=== PATIENT | male | born 1940 | race Asian ===

== ENCOUNTER 2018-08-11 20:41 | Emergency (ER) | payer OTHER, MEDICAID ==
[~2018-08-11] VITALS: Ht 152.4 cm; Wt 74.8 kg
[~2018-08-11 20:41] MED LIST: ASPI81TA3 PO; ATOR20TA40 PO; BACL10TA4 PO; FURO-570 PO; LINA290C PO; OMEP20EC9 PO; POTA10TE30 PO; TAMS0.4C96 PO
[2018-08-11 21:05] VITALS: BP 155/90
--- NOTE | 2018-08-11 21:08 | NUR ---
TO LOBBY A/W BED, AMBULATORY
--- NOTE | 2018-08-11 21:56 | NUR ---
PT AMBULATED TO BED 11.
--- NOTE | 2018-08-11 21:56 | NUR ---
PATIENT PRESENTS TO ED WITH C/O ABD PAIN X 1 WEEK . PT DENIES N/V/D; ABD IS ROUND NONTENDER, FIRM. SKIN IS PINK/WARM/DRY; AAOX4 WITH EVEN AND STEADY GAIT; LUNGS CLEAR BL; HR EVEN AND REGULAR; PT DENIES ANY FEVER, CP, SOB, OR COUGH AT THIS TIME; PATIENT STATES PAIN OF 8/10 AT THIS TIME; VSS; PATIENT POSITIONED FOR COMFORT; HOB ELEVATED; BEDRAILS UP X2; BED DOWN. ER MD MADE AWARE OF PT STATUS.
[2018-08-11 21:57] LABS: BASOPHILS % (AUTO) 0.9 % (0.0-2.0); EOSINOPHILS # (AUTO) 0.2 K/uL (0-0.4); EOSINOPHILS % (AUTO) 2.9 % (0.0-4.0); HEMATOCRIT 43.8 % (36-52); HEMOGLOBIN 14.2 g/dL (12.0-18.0); LYMPHOCYTES # (AUTO) 1.4 K/uL (2.0-11.5); LYMPHOCYTES % (AUTO) 26.4 % (20.5-51.1); MEAN CORPUSCULAR HEMOGLOBIN 29 pg (27-31); MEAN CORPUSCULAR HGB CONC 33 g/dL (33-37); MEAN CORPUSCULAR VOLUME 88.8 fL (80-94); MONOCYTES # (AUTO) 0.5 K/uL (0.8-1.0); MONOCYTES % (AUTO) 9.9 % (1.7-9.3); NEUTROPHILS # (AUTO) 3.2 K/uL (1.8-7.7); NEUTROPHILS % (AUTO) 59.9 % (42.2-75.2); PLATELET COUNT (AUTO) 179 K/uL (140-450); RED BLOOD CELL COUNT(AUTO) 4.93 MIL/uL (4.20-6.10); RED CELL DISTRIBUTION WIDTH 13.9 % (11.6-13.7); WHITE BLOOD COUNT (AUTO) 5.4 K/uL (4.8-10.8)
[2018-08-11 22:17] LABS: APPEARANCE,URINE CLEAR (CLEAR); BILIRUBIN,URINE NEGATIVE (NEGATIVE); BLOOD, URINE TRACE-I (NEGATIVE); COLOR,URINE YELLOW (YELLOW); LEUKOCYTE ESTERASE ,URINE NEGATIVE (NEGATIVE); NITRITE, URINE NEGATIVE (NEGATIVE); UGLUCOSE NEGATIVE (NEGATIVE)
[2018-08-11 22:20] LABS: ALBUMIN 3.9 g/dL (3.4-5.0); ANION GAP 4.5 (8-16); ASPARTATE AMINOTRANSFERASE 34 U/L (15-37); CARBON DIOXIDE 34.6 mmol/L (21-32); CHLORIDE 102 mmol/L (98-107); CREATININE 1.1 mg/dL (0.7-1.3); GLUCOSE 96 mg/dL (74-106); POTASSIUM 4.1 mmol/L (3.5-5.1); SODIUM SERUM 137 mmol/L (136-145); TOTAL BILIRUBIN 0.4 mg/dL (0.0-1.0); UREA NITROGEN, BLOOD 16 mg/dL (7-18)
[2018-08-11 22:33] LABS: RBC,URINE 0-5 /HPF (0-5); WBC,URINE 0-5 /HPF (0-5)
--- NOTE | 2018-08-11 23:08 | NUR ---
Patient being evaluated by physician at bedside.
--- NOTE | 2018-08-11 23:25 | NUR ---
X-Ray at bedside.
[2018-08-11] MEDS ORDERED: LACTULOSE 20 GM/30 ML UDC PO ONE (23:55)
[2018-08-12 00:59] VITALS: BP 147/62
== END 2018-08-12 00:59 | disposition home or self-care (01) ==
LOC: MED 20:41
DX: K59.00 Constipation, unspecified (principal); Z86.73 Personal history of transient ischemic attack (TIA), and cerebral infarction without residual deficits; Z79.82 Long term (current) use of aspirin; Z79.899 Other long term (current) drug therapy
CPT/HCPCS: 36415; 74018; 80053; 81001; 85025; 99284

== ENCOUNTER 2018-10-22 08:51 | Emergency (ER) | payer OTHER, MEDICAID ==
[~2018-10-22] VITALS: Ht 149.9 cm; Wt 69.2 kg
[2018-10-22 08:54] VITALS: BP 122/49
--- NOTE | 2018-10-22 09:02 | NUR ---
BIB DAUGHTER. AAO X4 C/O RT HIP PAIN X2 DAYS. STABBING PAIN WHEN PT WALKS AT 10/10 THAT RADIATES FROM RT HIP DOWN RT LEG, ALLEVIATED BY SITTING DOWN. PT DENIES TRUAMA OR INJURY. PT AMBULATED WITH SLOW STEADY GAIT WITH THE USE OF WALKER. +CMS TO RIGHT LOWER LEG. ER TO EVALUATE PT.
--- NOTE | 2018-10-22 09:06 | NUR ---
DR STEELE AT BEDSIDE FOR PT EVALUATION
[2018-10-22] MEDS ORDERED: KETOROLAC 60 MG/2 ML VIAL IM ONE (09:10)
--- NOTE | 2018-10-22 09:18 | NUR ---
pt taken to ct via bed by training technician
--- NOTE | 2018-10-22 09:36 | NUR ---
Patient returned from CT scan. RN re-evaluating patient at bedside.
[2018-10-22 10:56] VITALS: BP 124/62
--- NOTE | 2018-10-22 10:56 | NUR ---
Patient discharged with v/s stable. Written and verbal after care instructions given and explained. Patient verbalized understanding. Ambulatory with steady gait. All questions addressed prior to discharge. Advised to follow up with PMD.
== END 2018-10-22 10:56 | disposition home or self-care (01) ==
LOC: MED 08:51
DX: S73.101A Unspecified sprain of right hip, initial encounter (principal); Z86.73 Personal history of transient ischemic attack (TIA), and cerebral infarction without residual deficits; M19.90 Unspecified osteoarthritis, unspecified site; Z79.82 Long term (current) use of aspirin; Z79.899 Other long term (current) drug therapy; X58.XXXA Exposure to other specified factors, initial encounter; Y93.89 Activity, other specified; Y92.89 Other specified places as the place of occurrence of the external cause; Y99.8 Other external cause status
CPT/HCPCS: 73700; 96372; 99284; J1885